=== PATIENT | male | born 1990 ===

== ENCOUNTER 2025-04-24 08:02 | Day surgery (SDC) | payer BC, SELFPAY ==
[2025-04-04 11:02] VITALS: BMI 30.5
[2025-04-04 11:48] LABS: Hematocrit 46.2 % (39.0-52.0); Hemoglobin 15.4 g/dL (13.0-18.0); Mean Corp Hgb Conc. 33.3 g/dL (33.0-37.0); Mean Corpuscular Volume 86.7 fL (80.0-94.0); Nucleated Red Blood Cells % 0 % (-); Platelet Count 229 10^3/uL (130-400); Red Cell Dist. Width 11.9 % (11.5-14.5)
[2025-04-04 11:59] LABS: INR 1.17; PT 15.2 Sec (11.4-14.6)
[2025-04-04 12:01] LABS: ALT (SGPT) 25 U/L (0-50); AST (SGOT) 24 U/L (17-59); Albumin 4.8 g/dl (3.5-5.0); Alkaline Phosphatase 44 U/L (38-126); Blood Urea Nitrogen 22 mg/dl (9-20); Calcium 9.8 mg/dl (8.4-10.2); Carbon Dioxide 29 mmol/L (22-30); Chloride 104 mmol/L (98-107); Estimated Creatinine Clearance > 125 ml/min; Glucose 84 mg/dl (70-99); Magnesium 2.1 mg/dl (1.6-2.3); Potassium 4.3 mmol/L (3.5-5.1); Sodium 140 mmol/L (135-145); Total Protein 7.6 g/dl (6.3-8.2); eGFR > 60.00
--- NOTE | 2025-04-04 12:31 | HPS.HSE ---
Family Physician
-
Family Physician: Maximo Pleitez
Chief Complaint
-
Paroxysmal atrial fibrillation.
History of Present Illness
The patient is a 34 year old male presenting today for paroxysmal atrial fibrillation. The patient reports a history of disturbing palpitations, lightheadedness, fatigue, and increased anxiety associated with this diagnosis. He is on
current pharmacological therapy with Metoprolol Succinate. He overall tolerates this medication well with very little side effects reported. He reports that he has been compliant with Eliquis for oral anticoagulation. He is interested in pursuing
pulmonary vein isolation for further arrhythmia management at this time. He denies any complaints today such as chest pain, shortness of breath, nausea, vomiting, diarrhea, dizziness, cough, sore throat, or fever.
Medical History
Past Medical History
Past Medical History: Reports Other
Additional Past Medical History:
1. Paroxysmal atrial fibrillation, pharmacological therapy with Metoprolol Succinate and oral anticoagulation with Eliquis.
2. Pulmonary stenosis, status post dilatation/valvuloplasty in infancy; mild residual stenosis on echo 11/2024.
3. Mild-moderate pulmonary valve insufficiency.
4. Hypertriglyceridemia.
5. Atypical chest pain; stress echo 2019 reportedly negative.
6. GERD.
7. L5-S1 herniated disc.
8. Anxiety.
9. Gout.
10. Obesity, BMI 30.5.
Past Surgical History: Reports Other
Additional Past Surgical History:
1. Pulmonic dilatation/valvuloplasty.
2. Nasal fracture repair.
3. [place] teeth extraction.
4. Endoscopy.
Social History
Tobacco: Non-smoker
Alcohol: None (since his last atrial fibrillation episode in October 2024. )
Personal:
Living: Other (He lives with his and 4-month old son in a 2 story home with a basement. )
Family History
Family History: Not pertinent
Allergies / Home Medications
Allergy/Medication List:
Home medications:
1. Allopurinol 300 mg p.o. daily at 11:00.
2. Eliquis 5 mg p.o. twice a day.
3. Lexapro 30 mg p.o. daily at 11:00.
4. Metoprolol Succinate 25 mg p.o. daily at 11:00.
5. Ryaltris 1 spray intranasal twice a day as needed.
6. Prednisone 2.5 mg p.o. daily at 11:00.
Allergies: Amoxicillin.
Review of Systems
-
A 12 point ROS was completed and negative except as noted: Yes
Physical Exam
Vital Signs
Blood pressure 105/67. Heart rate 59. Respirations 18. Pulse ox 99% on room air.
Height 6 feet, 1 inch. Weight 104.9 kg. BMI 30.5.
Physical Exam
General: Well Developed, Well Nourished and No Apparent Distress
HEENT: NormoCephalic, Moist mucous membranes, Atraumatic and PERRLA
Respiratory: Clear
Cardiac: Bradycardia
GI: Soft, Non Tender and Non Distended
Musculoskeletal: No Edema and Normal Gait & Station
Skin: Warm and Dry
Neuro: AO x 3 and Nonfocal/grossly intact
Laboratory Results
-
04/04/25 11:11
04/04/25 11:11
Laboratory Results
PT 15.2 Sec (11.4-14.6) H 04/04/25 11:11
INR 1.17 04/04/25 11:11
Total Bilirubin 0.6 mg/dl (0.2-1.3) 04/04/25 11:11
AST 24 U/L (17-59) 04/04/25 11:11
ALT 25 U/L (0-50) 04/04/25 11:11
Alkaline Phosphatase 44 U/L (38-126) 04/04/25 11:11
Magnesium 2.1.
Type and screen O positive.
EKG 04/04/2025: Sinus bradycardia. Non-specific intraventricular conduction delay.
Chest CT 04/04/2025: Short segment common vestibule for the left superior and inferior pulmonary veins, fairly commonly seen and considered normal variant. No evidence for left atrial thrombus.
Echocardiogram 11/21/2024: Normal chamber sizes. Mild pulmonic stenosis. Normal left and right ventricular systolic function. Normal diastolic function. Normal right ventricular systolic pressure.
Impression/Plan
-
IMPRESSION/PLAN:
1. Paroxysmal atrial fibrillation: The patient is in need of a pulmonary vein isolation with Dr. Tyler Herndon on 04/24/2025. The benefits and risks of the procedure have been explained to the patient. The patient understands these risks and wishes
to proceed. He will not be required to undergo a pre-procedural transesophageal echocardiogram as he has been compliant with his home oral anticoagulation. He is aware to continue Eliquis uninterrupted prior to his ablation. He will hold his
Metoprolol 48 hours prior. He will take no medications the morning of his procedure.
[2025-04-24] VITALS (11 sets, daily range): BP systolic 115–142; BP diastolic 63–83; BMI 30.4
[2025-04-24 11:30] LABS: ACT-LR - POC 347 Seconds (116-155)
--- NOTE | 2025-04-24 11:49 | ITS.CL.ABL ---
[employer] - Ablation
Ablation
Procedure Report:
ELECTROPHYSIOLOGY ABLATION STUDY
DATE:: April 24, 2025�����������������������������REFERRING: Dr. Tj Figueroa
INDICATION: Paroxysmal supraventricular tachycardia in the form of atrial fibrillation.
HISTORY: See H and P.� As above
ANTIARRHYTHMIC DRUG: Metoprolol
PRE-PROCEDURE JARRELL: No intracardiac thrombus on intracardiac ultrasound
PRESENTING RHYTHM: Sinus bradycardia
'TIME-OUT':��called and confirmed.
SEDATION/ANESTHESIA:��provided via the anesthesia department using general anesthesia (LMA).
INTRAVENOUS/ARTERIAL ACCESS:
Right femoral venous - 8Fr
Left femoral venous - 8 Fr, 6 Fr
[id number] sutures bilaterally
Ultrasound guidance for bilateral femoral vein access was utilized by me to obtain access with demonstration of normal anatomy
CHADS-VASC Score:
HAS-Bled Score
PROCEDURE:
1.��A decapolar CS catheter was placed within the CS for mapping and pacing.��This was also used as the reference catheter for the 3-D map. We performed upfront EP study given the patient's youth and atrial fibrillation to look for nonpulmonary
vein triggers for atrial fibrillation including SVT triggers. Quadripolar catheter was placed in the right ventricular apex and a decapolar catheter was placed in the coronary sinus proper. Left and right atrial pacing as well as right ventricular
apical pacing was performed as well as His bundle recording. There was no VA conduction at baseline. Atrial pacing demonstrated no evidence for dual yamileth physiology and the patient was noninducible for supraventricular tachyarrhythmia with atrial
burst pacing and extrastimuli. Post pulmonary vein isolation and posterior wall isolation as below we repeated burst pacing down to left atrial refractoriness from the left atrium and the patient was noninducible for tachyarrhythmia. AV Wenke
block was noted at 360 ms with a normal HV interval. Normal sinus node recovery time.
2. The intracardiac ultrasound catheter was positioned in the RA to identify the FO for targeting of transseptal puncture, assist��in identification of the pulmonary vein ostia, monitoring pre and post ablation pulmonary vein flow velocities,
monitoring for 'bubble' formation during RF application as a sign of thermal injury,��and to monitor for pericardial effusion during mapping and ablation procedure.���Left atrial size, LV ejection fraction, and pulmonary vein flows were monitored
pre and post ablation procedure. The other valves were inspected and found to be free of significant regurgitation or stenosis.
3.��Half of the calculated heparin bolus was administered prior to the first transeptal puncture.��Transseptal puncture was performed to diagnose RA and LA pressure so that safety of LA mapping and ablation could be further assessed, and to access
the left atrium and pulmonary veins for mapping and ablation.��This entailed advancing an 16.8 Czech sheath, RF wire with dilator into the superior vena cava and withdrawing both (monitoring intracardiac ultrasound, fluoroscopy and tip pressure)
with the tip oriented toward the atrial septum.��The fossa ovalis was engaged (indicated by sudden displacement of the sheath tip as well as tenting of the fossa seen on intracardiac ultrasound).��Left atrial access required a pass with the
Brockenbrough needle extended.��Left atrial catheter position was confirmed by pressure monitoring (RA mean pressure 0 mm Hg and LA mean presure 5 mm Hg), LA saturation (99%) which was answered with 1 L total of normal saline hydration,��as well as
fluoroscopy.��The sheath was advanced over the dilator and positioned in the left atrium.��The remainder of the calculated heparin bolus was administered and heparin was
infused to maintain ACT at 300 -350 seconds throughout the case.
4.��RA pacing was performed via the proximal decapolar poles and LA pacing was performed via the distal decapolr poles.
5. A quadrapolar catheter was first positioned at the His position for His Bundle recording which was tagged via the 3-D Navex sytem, and then passed to the RVA for RV pacing and recording.
6. The Penta spline antegrade catheter placed in each of the LIPV, LSPV, RSPV and the RIPV.��
7.��Next, a 3-D map was created using Navex.���A 3-D reconstructed CT image was compared to the 3-D Navex map to assist in anatomic interpretation, mapping and ablation.��The CT image and the NavX image were fused.
8. A total of 46 lesions were given and all of the basket and flower poses. For the pulmonary veins all of and basket posts were given leading to entrance and exit block. Lateral posted edema to the roof posterior wall and floor of the left
atrium avoiding the anterior aspects leading to posterior wall isolation with entrance and exit block in the roof posterior wall and floor of the left atrium.
Post isolation we performed atrial burst pacing and patient was noninducible for other tachyarrhythmia.
9. Normal sinus and AV node function noted.
TOTAL FLOURO TIME: 14 minutes 143 mGy
TOTAL RF DURATION: 0 minutes
REVERSAL OF HEPARIN: 35 mg of protamine, slow IV administration
COMPLICATIONS:
None
Intracardiac US shows no pericardial effusion post ablation.
SUMMARY:��
Complex left atrial mapping and ablation.
Isolation of all 4 pulmonary veins and the posterior wall as above.
RECOMMENDATIONS:
1. Ambulate in 4 hours
2. Resume anticoagulation
3.��Consider same-day discharge
4.� Continue metoprolol
Copy to: Dr. Tj figueroa
--- NOTE | 2025-04-24 15:57 | W.PN.UPDATE ---
Update Note
Progress Note Update
34 yo WM s/p PVI (same day). He denies cp, sob, radha diet, EKG SR, b/l groins c/d/i no HT, soft. He will resume Eliquis tonight and continue metoprolol. Activity restrictions reviewed. He will f/u Dr. Wilson in 3 mo. He is for d/c home after 5p if
groins stable and voiding.
== END 2025-04-24 16:45 | disposition home or self-care (01) ==
LOC: CATH 08:02
PROVIDERS: ATTENDING PHYSICIAN Internal Medicine Cardiovascular Disease; FAMILY PHYSICIAN Internal Medicine; REFERRING PHYSICIAN Internal Medicine Cardiovascular Disease
DX: I48.0 Paroxysmal atrial fibrillation (principal); I37.0 Nonrheumatic pulmonary valve stenosis; I37.1 Nonrheumatic pulmonary valve insufficiency; E78.1 Pure hyperglyceridemia; R07.89 Other chest pain; K21.9 Gastro-esophageal reflux disease without esophagitis; M10.9 Gout, unspecified; F41.9 Anxiety disorder, unspecified; M51.27 Other intervertebral disc displacement, lumbosacral region; E66.9 Obesity, unspecified; Z68.30 Body mass index [BMI] 30.0-30.9, adult; Z79.899 Other long term (current) drug therapy; Z79.52 Long term (current) use of systemic steroids; Z79.01 Long term (current) use of anticoagulants; Z88.0 Allergy status to penicillin
CPT/HCPCS: C1759; C1892; C1730; C1769; C1732; C1894; 36415; 75572; 80053; 83735; 85025; 85347; 85610; 86850; 86900; 86901; 93005; 93656; 93657; C1733; C1766; Q9967